=== PATIENT | male | born 1990 | race Caucasian/White ===

== ENCOUNTER 2018-11-03 14:18 | Emergency (ER) | payer OTHER ==
[~2018-11-03] VITALS: Ht 177.8 cm; Wt 62.7 kg
[2018-11-03 14:19] VITALS: BP 131/78
== END 2018-11-03 14:32 | disposition left against medical advice (07) ==
LOC: M ED 14:18
DX: Z53.21 Procedure and treatment not carried out due to patient leaving prior to being seen by health care provider (principal)

== ENCOUNTER 2021-07-11 04:41 | Emergency (ER) | payer OTHER, SELFPAY ==
[~2021-07-11] VITALS: Ht 180.3 cm; Wt 62.2 kg
[2021-07-11] MEDS ORDERED: OXYCODONE/APAP 5MG/325MG(BULK FOR ED) 1 TABLET PO ONE (06:55)
[2021-07-11 07:28] VITALS: BP 138/79
== END 2021-07-11 07:30 | disposition home or self-care (01) ==
LOC: EDBD 04:41 → M ED 04:41
DX: S82.61XA Displaced fracture of lateral malleolus of right fibula, initial encounter for closed fracture (principal); V28.4XXA Motorcycle driver injured in noncollision transport accident in traffic accident, initial encounter; Y92.9 Unspecified place or not applicable; Y93.9 Activity, unspecified; Y99.9 Unspecified external cause status; Z88.8 Allergy status to other drugs, medicaments and biological substances; Z91.030 Bee allergy status